=== PATIENT | female | born 2000 | race Two or more races ===

== ENCOUNTER 2023-09-01 19:40 | Emergency (ER) | payer OTHER, SELFPAY ==
[~2023-09-01] VITALS: Ht 154.9 cm; Wt 58.4 kg
[2023-09-01 20:04] VITALS: BP 109/62; PULSE 75; RESP 18; TEMP 97.5; O2SAT 96
== END 2023-09-02 00:51 | disposition home or self-care (01) ==
LOC: ER 19:40
DX: S61.111A Laceration without foreign body of right thumb with damage to nail, initial encounter (principal); W26.0XXA Contact with knife, initial encounter; Y93.89 Activity, other specified; Y92.090 Kitchen in other non-institutional residence as the place of occurrence of the external cause; Y99.8 Other external cause status
CPT/HCPCS: 12002